=== PATIENT | female | born 1970 | race Caucasian/White ===

== ENCOUNTER → 2016-05-01 | Outpatient (CLI) | payer BC ==
[~2016-05-01] MED LIST: CEFU250T PO; DOCU100C37 PO; ESTR1TAB24 PO; IBUP-1780 PO; KETO-22 PO; MULT1CAP27 PO; OXYC-465 PO
--- NOTE | 2016-05-01 17:29 | Diagnostic Imaging Report ---
PROCEDURE: US Thyroid. TECHNIQUE: Multiple real-time grayscale images were obtained of the thyroid in various projections. INDICATION: Thyroid nodule. FINDINGS: Within the lower pole of the right lobe tiny calcified nodule shows posterior acoustical shadowing. It measures only 2 mm. Mid pole of the right thyroid lobe shows a well-circumscribed hypoechoic nodule with no perceptible blood flow. This measured 3 mm. Right lobe as a whole is within normal limits of size 4.8 x 1.3 x 1.3 cm. The left thyroid lobe normal in size at 4.3 x 1.2 x 1.4 cm. It appears homogeneous and nonfocal. IMPRESSION: A tiny 2-3 mm benign-appearing right lobe nodule, no suspicious mass. Dictated by: Dictated on workstation # [id number]
== END ==
LOC: RAD 14:48
PROVIDERS: ATTEND Family Medicine
DX: E04.1 Nontoxic single thyroid nodule (principal)
CPT/HCPCS: 76536

== ENCOUNTER → 2016-05-10 | Outpatient (CLI) | payer BC ==
[~2016-05-10] MED LIST changes: +CATHETER FLUSH 10 ML SYR IV PRN; +IOHEXOL 350 MG/ML 100 ML (OMNIPAQUE 350) VIAL IV ONE; +NS 100 ML (IVPB) BAG IV ONE
--- OUTSIDE RECORDS SUMMARY | 2016-05-10 11:00 | XMS REPORT | Continuity of Care Document ---
Author Author [facility] Organization [facility] Address Unknown Phone Unavailable Allergies Active Description Code Type Severity Reaction Onset Reported/Identified Relationship to Patient Clinical Status Yes No Known Drug Allergies [id number] Drug Allergy Unknown N/ A 04/06/2009 Medications Problems Date Dx Coded Attending Type Code Diagnosis Diagnosed By 05/24/2010 Ot 346.90 05/24/2010 Ot 784.0 09/26/2011 Ot 780.97 02/05/2014 MARTHA WOLFF MD Ot 793.80 02/05/2014 MARTHA WOLFF MD Ot V67.9 01/16/2015 Ot V76.12 01/16/2015 Ot V76.12 01/16/2015 MARTHA WOLFF MD Ot 793.82 01/16/2015 MARTHA WOLFF MD Ot V76.12 01/16/2015 MARTHA WOLFF MD Ot 793.80 01/16/2015 MARTHA WOLFF MD Ot 793.80 01/16/2015 MARTHA WOLFF MD Ot V67.9 01/16/2015 HECTOR SOMMER DO Ot K56.1 INTUSSUSCEPTION 01/16/2015 HECTOR SOMMER DO Ot N12 TUBULO-INTERSTITIAL NEPHRITIS, NOT SPCF 01/16/2015 HECTOR SOMMER DO Ot N83.20 UNSPECIFIED OVARIAN CYSTS 01/16/2015 Ot V76.12 01/16/2015 Ot V76.12 01/16/2015 MARTHA WOLFF MD Ot 793.82 01/16/2015 MARTHA WOLFF MD Ot V76.12 01/16/2015 MARTHA WOLFF MD Ot 793.80 01/16/2015 MARTHA WOLFF MD Ot 793.80 01/16/2015 MARTHA WOLFF MD, Ot V67.9 03/12/2015 MARTHA WOLFF MD, Ot N39.3 STRESS INCONTINENCE (FEMALE) (MALE) 03/12/2015 MARTHA WOLFF MD, Ot N80.1 ENDOMETRIOSIS OF OVARY 03/12/2015 MARTHA WOLFF MD, Ot N80.3 ENDOMETRIOSIS OF PELVIC PERITONEUM 03/12/2015 MARTHA WOLFF MD, Ot N81.4 UTEROVAGINAL PROLAPSE, UNSPECIFIED 03/12/2015 MARTHA WOLFF MD, Ot N92.0 EXCESSIVE AND FREQUENT MENSTRUATION WITH 03/12/2015 MARTHA WOLFF MD, Ot N93.8 OTHER SPECIFIED ABNORMAL UTERINE AND VAG 03/14/2015 MARTHA WOLFF MD, Ot D64.9 03/14/2015 MARTHA WOLFF MD, Ot N39.3 03/14/2015 MARTHA WOLFF MD, Ot N92.0 03/14/2015 MARTHA WOLFF MD, Ot Z01.818 03/14/2015 MARTHA WOLFF MD, Ot Z11.2 03/14/2015 FRANDY WARD MD Ot G89.18 OTHER ACUTE POSTPROCEDURAL PAIN 03/14/2015 FRANDY WARD MD Ot R33.9 RETENTION OF URINE, UNSPECIFIED 03/16/2015 MARTHA WOLFF MD Ot D64.9 03/16/2015 MARTHA WOLFF MD, Ot N39.3 03/16/2015 MARTHA WOLFF MD, Ot N92.0 03/16/2015 MARTHA WOLFF MD, Ot Z01.818 03/16/2015 MARTHA WOLFF MD, Ot Z11.2 05/12/2015 MARTHA WOLFF MD, Ot Z12.31 05/12/2015 MARTHA WOLFF MD, Ot Z98.82 02/11/2016 MARTHA WOLFF MD, Ot D64.9 ANEMIA, UNSPECIFIED 02/11/2016 MARTHA WOLFF MD, Ot N39.3 STRESS INCONTINENCE (FEMALE) (MALE) 02/11/2016 MARTHA WOLFF MD Ot N92.0 EXCESSIVE AND FREQUENT MENSTRUATION WITH 02/11/2016 MARTHA WOLFF MD Ot Z01.818 ENCOUNTER FOR OTHER PREPROCEDURAL EXAMIN 02/11/2016 MARTHA WOLFF MD Ot Z11.2 ENCOUNTER FOR SCREENING FOR OTHER BACTER 02/11/2016 MARTHA WOLFF MD Ot Z12.31 ENCNTR SCREEN MAMMOGRAM FOR MALIGNANT NE 02/11/2016 MARTHA WOLFF MD Ot Z98.82 BREAST IMPLANT STATUS 05/02/2016 JAMIE ALEJANDRE DO Ot E04.1 NONTOXIC SINGLE THYROID NODULE Procedures Results Encounters ACCT No. Visit Date/Time Discharge Status Pt. Type Provider Facility Loc./Unit Complaint [id number] 03/14/2015 20:09:00 2014 23:03:00 DIS Emergency FRANDY WARD MD [facility] ER POST SURG WOUND ISSUES [id number] 03/11/2015 10:50:00 2014 18:50:00 DIS Outpatient MARTHA WOLFF MD [facility] DYSFUNCTIONAL UTERINE BLEEDING;UTERINE PROLAPSE; [id number] 01/16/2015 17:30:00 2014 20:54:00 DIS Emergency HECTOR SOMMER DO [facility] ER FEVER [id number] 01/19/2014 13:14:00 2013 23:59:59 CLS Outpatient MARTHA WOLFF MD [facility] RAD [id number] 03/31/2013 08:15:00 2013 23:59:59 CLS Outpatient MRATHA WOLFF MD [facility] RAD [id number] 03/13/2013 13:54:00 2012 23:59:59 CLS Outpatient MARTHA WOLFF MD [facility] RAD [id number] 10/27/2012 15:20:00 2012 23:59:59 CLS Outpatient [id number] 05/01/2016 14:48:00 ACT Outpatient JAMIE ALEJANDRE DO [facility] RAD THYROID NODULE [id number] 04/26/2015 10:03:00 ACT Outpatient MARTHA WOLFF MD [facility] RAD SCREENING [id number] 03/03/2015 09:01:00 ACT Outpatient MARTHA WOLFF MD [facility] PREOP DYSFUNCTIONAL UTERINE BLEEDING;UTERINE PROLAPSE [id number] 01/08/2012 12:54:00 Document Registration [id number] 09/26/2011 03:45:00 Document Registration [id number] 01/03/2011 12:06:00 Document Registration [id number] 05/24/2010 13:03:00 Document Registration
--- NOTE | 2016-05-10 12:06 | Diagnostic Imaging Report ---
CLINICAL INDICATION: Patient with headaches x4 days and dizziness. EXAM: Axial CT scan of brain performed without and with 80 cc of Omnipaque 350 IV contrast. COMPARISON: Head CT without IV contrast dated 09/26/2011. FINDINGS: There is no evidence of acute cerebral infarct, intracranial hemorrhage, or gross mass effect. There is normal chaudhry-white matter distinction. The brain parenchymal volume appears appropriate for patient's age. There is no significant midline shift or herniation. The visualized alutiiq of Hollins vascular structures shows no significant abnormality. The dural venous sinuses show no significant abnormality as visualized. There is no evidence of hydrocephalus. The basal cisterns are unremarkable. The skull, extracranial soft tissue, and orbits are unremarkable. There is moderate to large amounts of air-fluid level and consolidation involving left sphenoid sinus region. IMPRESSION: Sphenoid sinusitis. Otherwise, unremarkable CT scan of the brain. Dictated by: Dictated on workstation # [id number]
== END ==
LOC: RAD 10:57
PROVIDERS: ATTEND Nurse Practitioner Family
DX: J01.30 Acute sphenoidal sinusitis, unspecified (principal); G43.909 Migraine, unspecified, not intractable, without status migrainosus; R42 Dizziness and giddiness
CPT/HCPCS: 70470

== ENCOUNTER 2016-06-04 09:03 | Emergency (ER) | payer BC ==
[~2016-06-04] VITALS: Ht 157.5 cm; Wt 54.4 kg
[~2016-06-04 09:03] MED LIST changes: -CATHETER FLUSH 10 ML SYR IV PRN; -IOHEXOL 350 MG/ML 100 ML (OMNIPAQUE 350) VIAL IV ONE; -NS 100 ML (IVPB) BAG IV ONE
--- OUTSIDE RECORDS SUMMARY | 2016-06-04 09:10 | XMS REPORT | Continuity of Care Document ---
Author Author [facility] Organization [facility] Address Unknown Phone Unavailable Allergies Active Description Code Type Severity Reaction Onset Reported/Identified Relationship to Patient Clinical Status Yes No Known Drug Allergies [id number] Drug Allergy Unknown N/ A 04/06/2009 Medications [...] SCREENING FOR OTHER BACTER 02/11/2016 MARTHA WOLFF MD, Ot Z12.31 ENCNTR SCREEN MAMMOGRAM FOR MALIGNANT NE 02/11/2016 MARTHA WOLFF MD Ot Z98.82 BREAST IMPLANT STATUS 05/02/2016 JAMIE ALEJANDRE DO Ot E04.1 NONTOXIC SINGLE THYROID NODULE 05/17/2016 JAMIE ALEJANDRE DO Ot E04.1 NONTOXIC SINGLE THYROID NODULE 05/24/2016 JIMY BARNEY APRN Ot G43.909 MIGRAINE, UNSP, NOT INTRACTABLE, WITHOUT 05/24/2016 JIMY BARNEY APRN Ot J01.30 ACUTE SPHENOIDAL SINUSITIS, UNSPECIFIED 05/24/2016 JIMY BARNEY ASSISTANT SIGNAL MAINTAINER Ot R42 DIZZINESS AND GIDDINESS Procedures Results Encounters ACCT No. Visit Date/Time Discharge Status Pt. Type Provider Facility Loc./Unit Complaint [id number] 03/14/2015 20:09:00 2014 23:03:00 DIS Emergency FRANDY WARD MD [facility] ER POST SURG WOUND ISSUES [id number] 03/11/2015 10:50:00 2014 18:50:00 DIS Outpatient MARTHA WOLFF MD [facility] DYSFUNCTIONAL UTERINE BLEEDING;UTERINE PROLAPSE; [id number] 01/16/2015 17:30:00 2014 20:54:00 DIS Emergency HECTOR SOMMER DO [facility] ER FEVER [id number] 01/19/2014 13:14:00 2013 23:59:59 CLS Outpatient MARTHA WOLFF MD [facility] RAD [id number] 03/31/2013 08:15:00 2013 23:59:59 CLS Outpatient MARTHA WOLFF MD [facility] RAD [id number] 03/13/2013 13:54:00 2012 23:59:59 CLS Outpatient MARTHA WOLFF MD [facility] RAD [id number] 10/27/2012 15:20:00 2012 23:59:59 CLS Outpatient [id number] 05/10/2016 10:57:00 ACT Outpatient JIMY BARNEY APRN [facility] RAD STATUS MIGRAINOUS [id number],DIZZINESS [id number] 05/01/2016 14:48:00 ACT Outpatient JAMIE ALEJANDRE DO [facility] RAD THYROID NODULE [id number] 04/26/2015 10:03:00 ACT Outpatient MARTHA WOLFF MD [facility] RAD SCREENING [id number] 03/03/2015 09:01:00 ACT Outpatient MARTHA WOLFF MD [facility] PREOP DYSFUNCTIONAL UTERINE BLEEDING;UTERINE PROLAPSE [id number] 01/08/2012 12:54:00 Document Registration [id number] 09/26/2011 03:45:00 Document Registration [id number] 01/03/2011 12:06:00 Document Registration [id number] 05/24/2010 13:03:00 Document Registration
[2016-06-04 09:26] LABS: BASOPHILS # (AUTO) 0.1 10^3/uL (0.0-0.1); BASOPHILS % (AUTO) 1 % (0-10); EOSINOPHILS # (AUTO) 0.1 10^3/uL (0.0-0.3); EOSINOPHILS % (AUTO) 3 % (0-10); LYMPHOCYTES # (AUTO) 1.2 X 10^3 (1.0-4.0); LYMPHOCYTES % (AUTO) 26 % (12-44); MEAN CORPUSCULAR HEMOGLOBIN 30 PG (25-34); MEAN CORPUSCULAR HGB CONC 33 G/DL (32-36); MEAN CORPUSCULAR VOLUME 91 FL (80-99); MEAN PLATELET VOLUME 9.8 FL (7.4-10.4); MONOCYTES # (AUTO) 0.6 X 10^3 (0.0-1.0); MONOCYTES % (AUTO) 12 % (0-12); NEUTROPHILS # (AUTO) 2.8 X 10^3 (1.8-7.8); NEUTROPHILS % (AUTO) 58 % (42-75); PLATELET COUNT 184 10^3/uL (130-400); RED BLOOD COUNT 4.67 10^6/uL (4.35-5.85); RED CELL DISTRIBUTION WIDTH 12.6 % (10.0-14.5); WHITE BLOOD COUNT 4.8 10^3/uL (4.3-11.0)
[2016-06-04 09:39] LABS: ALANINE AMINOTRANSFERASE 20 U/L (0-55); ALBUMIN 4.3 G/DL (3.2-4.5); ANION GAP 11 MMOL/L (5-14); ASPARTATE AMINO TRANSFERASE 27 U/L (5-34); BILIRUBIN,TOTAL 0.4 MG/DL (0.1-1.0); BLOOD UREA NITROGEN 22 MG/DL (7-18); BUN/CREATININE RATIO 22; CALCIUM 9.4 MG/DL (8.5-10.1); CARBON DIOXIDE 25 MMOL/L (21-32); CHLORIDE 103 MMOL/L (98-107); CREATININE SERUM 1.02 MG/DL (0.60-1.30); GFR ESTIMATED 58; GLUCOSE 102 MG/DL (70-105); LIPASE 30 U/L (8-78); MAGNESIUM 1.9 MG/DL (1.8-2.4); POTASSIUM 4.1 MMOL/L (3.6-5.0); SODIUM 139 MMOL/L (135-145); TOTAL PROTEIN 6.9 G/DL (6.4-8.2)
--- NOTE | 2016-06-04 09:40 | ED Chest Pain ---
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 Pt reports she has generally not felt well all day and was unable to exercise this morning as normal. Pt also c/o feeling dizzy. Nursing Sepsis Screen: No Definite Risk Source: patient, RN notes reviewed Exam Limitations: no limitations History of Present Illness Time seen by provider: 09:15 Initial Comments Patient presents c/ lower substernal/epigastric abdominal pain for the last 15 minutes. Has never had before. States hasn't felt well all morning. Dizzy/ light headed c/ nausea. Couldn't work out this AM like she normally would. No known fever. Apparently has been around several people c/ the flu but doesn't think she has it. Timing/Duration: 1/2 hour Severity/Quality: moderate Location: substernal, epigastric Radiation: no radiation Activities at Onset: none Prior CP/Workup: no prior chest pain, no prior cardiac workup Modifying Factors: improves with other (nothing/unknown) ASA po DISTILLERY WORKER GENERAL: No NTG SL DISTILLERY WORKER GENERAL: No Associated Symptoms: dizziness (nausea) Allergies and Home Medications Allergies Coded Allergies: No Known Drug Allergies (Verified , 04/06/09) Home Medications Docusate Sodium 100 Mg Capsule #60 100 MG PO BID Prescribed by: MARTHA GRESHAM on 03/12/15920 Estradiol 1 Mg Tablet #90 2 MG PO DAILY Prescribed by: MARTHA GRESHAM on 03/12/15920 Ibuprofen 800 Mg Tablet #60 800 MG PO Q6HR Prescribed by: MARTHA GRESHAM on 03/12/15920 Multivitamins 1 Each Capsule 1 EACH PO DAILY (Reported) Oxycodone HCl/Acetaminophen 1 Each Tablet #60 1-2 TAB PO Q4H PRN PRN PAIN Prescribed by: MARTHA GRESHAM on 03/12/15920 Review of Systems Constitutional: see HPI dizziness Cardiovascular: See HPI Chest Pain Gastrointestinal: See HPI Abdominal Pain Nausea All Other Systems Reviewed Negative Unless Noted: Yes (Negative excepted noted.) Past Eotnfls-Qqgsbz-Qzijww Hx Patient Social History Alcohol Use: Denies Use Recreational Drug Use: No Smoking Status: Never a Smoker 2nd Hand Smoke Exposure: No Recent Foreign Travel: No Contact w/Someone Who Travel: No Recent Infectious Disease Expo: No Recent Hopitalizations: No Immunizations Up To Date Tetanus Booster (TDap): Unknown Surgeries HX Surgeries: Yes (OVARIAN CYST REMOVAL, SHOULDER SURGERY) Surgeries: Bladder Surgery, Breast, Hysterectomy, Orthopedic Respiratory Hx Respiratory Disorders: No Cardiovascular Hx Cardiac Disorders: No Neurological Hx Neurological Disorders: No Reproductive System Hx Reproductive Disorders: Yes (DUB, UTERINE PROLAPSE) Sexually Transmitted Disease: No HIV/AIDS: No Female Reproductive Disorders: Menstrual Problems, Endometriosis, 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 Genitourinary Hx Genitourinary Disorders: No (KIDNEY INFECTION A MONTH AGO) Gastrointestinal Hx Gastrointestinal Disorders: No Musculoskeletal Hx Musculoskeletal Disorders: Yes (POSS ARTHRITIS IN ONE FINGER) Endocrine Hx Endocrine Disorders: No HEENT HX ENT Disorders: No Cancer Hx Cancer: No Psychosocial Hx Psychiatric Problems: No Integumentary HX Skin/Integumentary Disorder: No Blood Transfusions Hx Blood Disorders: No Adverse Reaction to a Blood Tr: No Family Medical History Family Medial History: BREAST CANCER 19 MOTHER Diabetes mellitus 19 MOTHER MS 19 MOTHER Parkinson's disease 19 MOTHER Physical Exam Vital Signs Vital Sign - Last 12Hours 06/04/16 09:05 Temp 96.9 Pulse 64 Resp 18 B/P 113/77 Pulse Ox 97 O2 Delivery Room Air Capillary Refill : Less Than 3 Seconds General Appearance: No Apparent Distress WD/WN HEENT: Normal ENT Inspection Neck: Normal Inspection Respiratory: No Respiratory Distress Cardiovascular: Regular Rate, Rhythm Gastrointestinal: No Guarding, No Rebound, Tenderness (epigastrically) Rectal: Deferred Neurologic/Psychiatric: Alert Oriented x3 No Motor/Sensory Deficits Normal Mood/Affect Skin: Warm/Dry Focused Exam Lactic Acid Level Laboratory Tests Test 06/04/16 09:16 Alanine Aminotransferase (ALT/SGPT) 20U/L (0-55) Albumin 4.3G/DL (3.2-4.5) Alkaline Phosphatase 78U/L (40-136) Anion Gap 11MMOL/L (5-14) Aspartate Amino Transf (AST/SGOT) 27U/L (5-34) B-Type Natriuretic Peptide < 10.0PG/ML (<100.0) BUN/Creatinine Ratio 22 Blood Urea Nitrogen 22MG/DL (7-18) H Calcium Level 9.4MG/DL (8.5-10.1) Carbon Dioxide Level 25MMOL/L (21-32) Chloride Level 103MMOL/L (98-107) Creatinine 1.02MG/DL (0.60-1.30) Estimat Glomerular Filtration Rate 58 Glucose Level 102MG/DL (70-105) Lipase 30U/L (8-78) Magnesium Level 1.9MG/DL (1.8-2.4) Potassium Level 4.1MMOL/L (3.6-5.0) Sodium Level 139MMOL/L (135-145) Total Bilirubin 0.4MG/DL (0.1-1.0) Total Protein 6.9G/DL (6.4-8.2) Troponin I < 0.30NG/ML (<0.30) Progress/Results/Core Measures Results/Orders Lab Results Laboratory Tests Test 06/04/16 09:16 Range/Units Alanine Aminotransferase (ALT/SGPT) 20 0-55 U/L Albumin 4.3 3.2-4.5 G/DL Alkaline Phosphatase 78 40-136 U/L Anion Gap 11 5-14 MMOL/L Aspartate Amino Transf (AST/SGOT) 27 5-34 U/L B-Type Natriuretic Peptide < 10.0 <100.0 PG/ML BUN/Creatinine Ratio 22 Basophils # (Auto) 0.1 0.0-0.1 10^3/uL Basophils (%) (Auto) 1 0-10 % Blood Urea Nitrogen 22 H 7-18 MG/DL Calcium Level 9.4 8.5-10.1 MG/DL Carbon Dioxide Level 25 21-32 MMOL/L Chloride Level 103 98-107 MMOL/L Creatinine 1.02 0.60-1.30 MG/DL Eosinophils # (Auto) 0.1 0.0-0.3 10^3/uL Eosinophils (%) (Auto) 3 0-10 % Estimat Glomerular Filtration Rate 58 Glucose Level 102 70-105 MG/DL Hematocrit 42 35-52 % Hemoglobin 14.0 11.5-16.0 G/DL Lipase 30 8-78 U/L Lymphocytes # (Auto) 1.2 1.0-4.0 X 10^3 Lymphocytes (%) (Auto) 26 12-44 % Magnesium Level 1.9 1.8-2.4 MG/DL Mean Corpuscular Hemoglobin 30 25-34 PG Mean Corpuscular Hemoglobin Concent 33 32-36 G/DL Mean Corpuscular Volume 91 80-99 FL Mean Platelet Volume 9.8 7.4-10.4 FL Monocytes # (Auto) 0.6 0.0-1.0 X 10^3 Monocytes (%) (Auto) 12 0-12 % Neutrophils # (Auto) 2.8 1.8-7.8 X 10^3 Neutrophils (%) (Auto) 58 42-75 % Platelet Count 184 130-400 10^3/uL Potassium Level 4.1 3.6-5.0 MMOL/L Red Blood Count 4.67 4.35-5.85 10^6/uL Red Cell Distribution Width 12.6 10.0-14.5 % Sodium Level 139 135-145 MMOL/L Total Bilirubin 0.4 0.1-1.0 MG/DL Total Protein 6.9 6.4-8.2 G/DL Troponin I < 0.30 <0.30 NG/ML White Blood Count 4.8 4.3-11.0 10^3/uL My Orders Orders-HECTOR SOMMER DO Saline Lock/Iv-Start (06/04/16 09:19) Ekg Tracing (06/04/16 09:19) BNP (06/04/16 09:19) Cbc With Automated Diff (06/04/16 09:19) Comprehensive Metabolic Panel (06/04/16 09:19) Lipase (06/04/16 09:19) Magnesium (06/04/16 09:19) Troponin I (06/04/16 09:19) Chest Pa/Lat (2 View) (06/04/16 09:19) Ns Iv 1000 Ml (Sodium Chloride 0.9%) (06/04/16 10:15) Dexamethasone Pf Injection (Decadron Pf (06/04/16 10:15) Medications Given in ED Current Medications Medications Dose Ordered Sig/Sandie Route Start Time Stop Time Status Last Admin Dose Admin Dexamethasone Sodium Phosphate 10 mg ONCE ONCE IV 06/04/16 10:15 06/04/16 10:17 DC 06/04/16 10:30 10 MG Sodium Chloride 1,000 ml @ 0 mls/hr Q0M ONCE IV 06/04/16 10:15 06/04/16 10:17 DC 06/04/16 10:30 0 MLS/HR Vital Signs/I&O Vital Sign - Last 12Hours 06/04/16 06/04/16 09:05 09:15 Temp 96.9 Pulse 64 Resp 18 B/P 113/77 Pulse Ox 97 O2 Delivery Room Air Room Air Blood Pressure Mean: 89 ECG Initial ECG Impression Date: Jun 04, 2016 Initial ECG Impression Time: 09:15 Initial ECG Rate: 73 Initial ECG Rhythm: Normal Sinus Initial ECG Impression: Normal Initial ECG Comparisson: No Previous ECG Available Diagnostic Imaging Diagonstic Imaging: Xray Plain Films/CT/US/NM/MRI: chest (nothing acute per radiologist) Departure Impression Impression: Primary Impression: Chest pain, non-cardiac Additional Impressions: Dizziness Mild dehydration Disposition: 01 HOME, SELF-CARE Condition: Stable Departure-Patient Inst. Decision time for Depature: 10:49 Referrals: JAMIE ALEJANDRE DO (PCP/Family) Primary Care Physician Patient Instructions: Chest Pain That Is Not Caused by the Heart (DC), Dehydration, Adult (DC) Add. Discharge Instructions: All discharge instructions reviewed with patient and/or family. Voiced understanding. RECOMMEND PUSHING FLUIDS THE NEXT 24 HOURS. HECTOR SOMMER DO Jun 04, 2016 09:40
--- NOTE | 2016-06-04 09:42 | Diagnostic Imaging Report ---
INDICATION: Chest pain PA and lateral views of the chest are obtained. COMPARISON: No previous study is available for comparison at this time. FINDINGS: Heart size and pulmonary vasculature are within normal limits, and the lungs are clear, bilaterally. IMPRESSION: Unremarkable chest. Dictated by: Dictated on workstation # [id number]
[2016-06-04 09:45] LABS: TROPONIN I < 0.30 NG/ML (<0.30)
[2016-06-04] MEDS ORDERED: NS IV 1000 ML 1,000 ML IV ONE (10:15)
[2016-06-04] MEDS ORDERED: DEXAMETHASONE PF 10 MG/ML (DECADRON) VIAL IV ONE (10:15)
[2016-06-04 11:19] VITALS: BP 111/68
== END 2016-06-04 11:19 | disposition home or self-care (01) ==
LOC: EDUNIT# 09:03 → ER 09:05
DX: R07.89 Other chest pain (principal); R42 Dizziness and giddiness; R11.0 Nausea
CPT/HCPCS: 36415; 71020; 80053; 83690; 83735; 83880; 84484; 85025; 93005; 96361; 96374

== ENCOUNTER → 2016-08-10 | Outpatient (CLI) | payer BC | LOC: RAD 14:53 | PROVIDERS: ATTEND Nurse Practitioner Family | DX: E04.1 Nontoxic single thyroid nodule (principal) ==

== ENCOUNTER → 2016-08-21 | Outpatient (CLI) | payer BC ==
--- NOTE | 2016-08-21 13:55 | Diagnostic Imaging Report ---
PROCEDURE: US Thyroid. TECHNIQUE: Multiple real-time grayscale images were obtained of the thyroid in various projections. INDICATION: Thyroid mass. COMPARISON: 05/01/2016. FINDINGS: Tiny 3 mm right mid pole circumscribed nonaggressive hypoechoic nodule identical to prior. Left lobe is nonfocal. The isthmus is normal. The right lobe is 4.9 cm and the left lobe 5.0 cm. IMPRESSION: Stable tiny benign right lobe nodule. No suspicious findings. Dictated by: Dictated on workstation # [id number]
== END ==
LOC: RAD 10:58
PROVIDERS: ATTEND Nurse Practitioner Family
DX: E04.1 Nontoxic single thyroid nodule (principal)
CPT/HCPCS: 76536

== ENCOUNTER → 2016-09-07 | Outpatient (CLI) | payer BC ==
--- NOTE | 2016-09-07 10:09 | Diagnostic Imaging Report ---
PROCEDURE: CT urinary tract, rule out kidney stone. TECHNIQUE: Multiple contiguous axial images were obtained through the abdomen and pelvis without the use of intravenous contrast. INDICATION: Severe costovertebral angle tenderness. Hematuria. Fever. COMPARISON: 03/14/2015. FINDINGS: Included views of the lung bases are clear. CT ABDOMEN: Ureters cannot be followed in there entirety, but no calculi seen along the expected course of the ureters. Additionally, there is no hydroureteronephrosis or other evidence of obstruction. No renal calculi are seen on either side. Additionally, no renal type masses are seen on this noncontrast exam. The liver, spleen, pancreas, and adrenal glands have an unremarkable noncontrast CT appearance as well. Small bowel loops are nondistended. Normal appendix cannot be adequately identified, but there is no pericecal inflammation. There is no loculated fluid collection, free fluid, nor free air within the abdomen. No abnormal mesenteric or retroperitoneal adenopathy is seen. Bony structures show no acute abnormalities. CT PELVIS: Urinary bladder is unopacified. No calculi are seen within urinary bladder. There is no loculated fluid collection, free fluid, nor free air. No abnormal lymph nodes are seen. Bony structures show no acute abnormalities. IMPRESSION: 1. Unremarkable noncontrast CT of the abdomen and pelvis. No acute abnormalities are identified. Dictated by: Dictated on workstation # [id number]
== END ==
LOC: RAD 09:46
DX: R31.9 Hematuria, unspecified (principal); R10.9 Unspecified abdominal pain; R50.9 Fever, unspecified
CPT/HCPCS: 74176

== ENCOUNTER → 2017-01-17 | Outpatient (CLI) | payer BC | LOC: RAD 14:11 | PROVIDERS: ATTEND Obstetrics & Gynecology | DX: Z12.31 Encounter for screening mammogram for malignant neoplasm of breast (principal) | CPT/HCPCS: 77067 ==

== ENCOUNTER → 2018-12-30 | Outpatient (CLI) | payer BC ==
--- NOTE | 2018-12-30 15:04 | Diagnostic Imaging Report ---
INDICATION: Routine screening. COMPARISON: 01/17/2017 and 04/26/2015. TECHNIQUE: 2D and 3D bilateral screening mammography was performed with CAD. FINDINGS: Bilateral breast implants are again noted. The implant contours remain smooth. The breast parenchyma remains heterogeneously dense, limiting the sensitivity of mammography. No mass or malignant appearing microcalcifications are seen. The axillae are unremarkable. IMPRESSION: No mammographic features suspicious for malignancy are identified. ACR BI-RADS Category 2: Benign findings. Result letter will be mailed to the patient. Note: At least 10% of breast cancer is not imaged by mammography. Dictated by: Dictated on workstation # [id number]
== END ==
LOC: RAD 13:44
PROVIDERS: ATTEND Obstetrics & Gynecology
DX: Z12.31 Encounter for screening mammogram for malignant neoplasm of breast (principal); Z98.82 Breast implant status
CPT/HCPCS: 77067

== ENCOUNTER → 2020-01-01 | Outpatient (CLI) | payer BC ==
[~2020-01-01] MED LIST changes: -OXYC-465 PO; +OXYC-556 PO
--- NOTE | 2020-01-01 16:06 | Diagnostic Imaging Report ---
INDICATION: Routine screening. COMPARISON is made with prior mammograms from 12/30/2018 and 01/17/2017. 2-D and 3-D bilateral screening mammography was performed with CAD. Bilateral breast implants are again noted. No definite evidence of extracapsular rupture is seen. Both breasts remain heterogeneously dense, limiting the sensitivity of mammography. The parenchymal pattern is stable. No mass or malignant appearing microcalcifications are seen. The axillae are unremarkable. IMPRESSION: BI-RADS Category 2. No mammographic features suspicious for malignancy are identified. ACR BI-RADS Category 2: Benign findings. Result letter will be mailed to the patient. Note: At least 10% of breast cancer is not imaged by mammography. Dictated by: Dictated on workstation # [id number]
== END ==
LOC: RAD 15:00
PROVIDERS: ATTEND Obstetrics & Gynecology
DX: Z12.31 Encounter for screening mammogram for malignant neoplasm of breast (principal)
CPT/HCPCS: 77063; 77067

== ENCOUNTER → 2020-04-28 | Outpatient (CLI) | payer BC ==
--- NOTE | 2020-04-28 14:26 | Diagnostic Imaging Report ---
INDICATION: Palpable lump in left popliteal fossa. FINDINGS: Sonographic interrogation of the area of lump in the left popliteal fossa was performed. There is an area of heterogeneous soft tissue measuring 2.3 x 0.9 x 2.2 cm without internal vascularity. This may represent a lipoma. No fluid collection is seen. IMPRESSION: Probable lipoma at the area of palpable abnormality. Close clinical follow-up is recommended. If further imaging is needed, MRI could be performed. Dictated by: Dictated on workstation # [id number]
== END ==
LOC: RAD 13:43
PROVIDERS: ATTEND Surgery
DX: M71.22 Synovial cyst of popliteal space [Baker], left knee (principal)
CPT/HCPCS: 76881

== ENCOUNTER 2020-05-24 05:38 | Outpatient (RCR) | payer BC | END 2020-08-22 | disposition home or self-care (01) | LOC: PREOP 05:38 | PROVIDERS: ATTEND Surgery | DX: Z01.818 Encounter for other preprocedural examination (principal) ==

== ENCOUNTER → 2020-06-03 | Outpatient (CLI) | payer BC ==
[~2020-06-03] MED LIST changes: +GADOBUTROL 7.5 MMOL/7.5 ML (GADAVIST) VIAL IV ONE
--- NOTE | 2020-06-03 16:58 | Diagnostic Imaging Report ---
PROCEDURE: MRI left lower extremity with and without contrast. TECHNIQUE: Multiplanar, multisequence pre and post contrast-enhanced MRI of the left lower extremity was accomplished. INDICATION: Left popliteal mass. COMPARISON: Ultrasound from 04/28/2020. FINDINGS: No acute fracture is seen in the left knee. There is mild lateral tilt of the patella. Alignment otherwise appears normal. There is no significant joint effusion. The articular cartilage in the patellofemoral compartment demonstrates no full-thickness defects. Articular cartilage in the medial and lateral compartments appears intact. STIR signal is quite low. No definite meniscus tear is seen. The anterior and posterior cruciate ligaments are intact. The medial collateral ligament and lateral collateral ligamentous complex appear intact. The extensor mechanism is intact. The medial and lateral retinacula are intact. There is trace fluid in Davenport's cyst. Underlying the MRI marker there is a prominent encapsulated lobulated area of subcutaneous fat measuring about 3.4 x 1.4 x 2.1 cm in size. There is no enhancement, nodularity or thickened septation. IMPRESSION: 1. The MRI marker at the palpable abnormality corresponds with a simple subcutaneous lipoma. Dictated by: Dictated on workstation # [id number]
== END ==
LOC: RAD 14:38
PROVIDERS: ATTEND Surgery
DX: R22.42 Localized swelling, mass and lump, left lower limb (principal)
CPT/HCPCS: 73720

== ENCOUNTER 2020-06-14 05:31 | Outpatient (RCR) | payer BC ==
[~2020-06-14] VITALS: Ht 160 cm; Wt 48.0 kg
[~2020-06-14 05:31] MED LIST changes: -GADOBUTROL 7.5 MMOL/7.5 ML (GADAVIST) VIAL IV ONE
== END 2020-06-14 12:53 | disposition home or self-care (01) ==
LOC: PREOP 05:31
PROVIDERS: ATTEND Surgery
DX: Z01.818 Encounter for other preprocedural examination (principal)

== ENCOUNTER 2020-06-21 09:38 | Day surgery (SDC) | payer BC ==
[~2020-06-21] VITALS: Ht 160 cm; Wt 48.0 kg
[2020-06-21 09:40] VITALS: BP 102/68
[2020-06-21] MEDS ORDERED: LACTATED RINGERS 1,000 ML IV STA ×2 (09:41→09:53)
[2020-06-21] MEDS ORDERED: MIDAZOLAM 2 MG/2 ML (VERSED) VIAL ONE (09:44)
[2020-06-21] MEDS ORDERED: PROPOFOL INJECTION 50 ML IV ONE (09:44)
[2020-06-21] MEDS ORDERED: LACTATED RINGERS 1,000 ML IV ONE (09:49)
[2020-06-21 10:45] VITALS: BP 90/50
--- NOTE | 2020-06-21 10:47 | Progress Note-Post Operative ---
Post-Operative Progess Note Surgeon (s)/Print Shop Manager (s) Surgeon CHIRAG CHOWDHURY DO Print Shop Manager: na Pre-Operative Diagnosis screening colonoscopy Post-Operative Diagnosis normal colonoscopy Procedure & Operative Findings Date of Procedure 06/21/20 Procedure Performed/Findings colonoscopy Anesthesia Type per [facility] Estimated Blood Loss Estimated blood loss (mL): none Specimens/Packing Specimens Removed na CHIRAG CHOWDHURY DO Jun 21, 2020 10:47
--- NOTE | 2020-06-21 10:49 | Discharge Inst-Simple/Standard ---
Discharge Inst-Standard Patient Instructions/Follow Up Plan of Care/Instructions/FU: 2 weeks Jasmin for procedure of Lipoma. Repeat colonoscopy in 10 years unless family history which would be 5 years, or if any issues be seen at that time. Activity as Tolerated: Yes Discharge Diet: Regular Diet CHIRAG CHOWDHURY DO Jun 21, 2020 10:49
[2020-06-21 10:50] VITALS: BP 91/54
[2020-06-21 10:55] VITALS: BP 91/54
[2020-06-21 11:10] VITALS: BP 95/56
--- NOTE | 2020-06-21 12:36 | Anesthesia-General Post-Op ---
MAC Patient Condition Mental Status/LOC: Same as Preop Cardiovascular: Satisfactory Nausea/Vomiting: Absent Respiratory: Satisfactory Pain: Controlled Complications: Absent Post Op Complications Complications None Follow Up Care/Instructions Patient Instructions None needed. Anesthesiology Discharge Order Discharge Order Patient was seen after the procedure and she was doing well, no complaints, stable vital signs, no apparent adverse anesthesia problems. ABY GARCIA DO Jun 21, 2020 12:36
--- NOTE | 2020-06-21 15:13 | OPERATIVE REPORT ---
DATE OF SERVICE: 06/21/2020 PREOPERATIVE DIAGNOSIS: Screening colonoscopy. POSTOPERATIVE DIAGNOSIS: Normal colon. PROCEDURE PERFORMED: Colonoscopy. SURGEON: Chirag Castellanos DO. ANESTHESIA: Per MDA. ESTIMATED BLOOD LOSS: None. COMPLICATIONS: None. INDICATIONS FOR PROCEDURE: The patient is a 50-year-old female needing screening colonoscopy. She understands the risks and benefits of the procedure and wished to proceed with the procedure. Consent was signed in the chart. DESCRIPTION OF PROCEDURE: The patient was taken to the endoscopy suite and placed in a left lateral recumbent position. Timeout was performed. A digital rectal exam was performed. There were no palpable polyps, masses or ulcerations. Scope was inserted in the rectum, advanced all the way to cecum with minimal difficulty. Prep was adequate. Scope was then slowly retracted back. There were no polyps, masses or ulcerations within the cecum, ascending, transverse, descending and sigmoid colon. Once in the rectum, scope was retroflexed noting no other pathology. Scope was returned to its normal position, slowly withdrawn until completely removed, noting no other pathology. The patient tolerated the procedure well without any complications. She was taken to the recovery room in a stable condition. RECOMMENDATIONS: The patient will need a repeat colonoscopy in 10 years unless family history of colon cancer, which would then be 5 years. Any issues before that be seen at that time. 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 She will proceed with that in the office to discuss. Job ID: [id number] DocumentID: [id number] Dictated Date: 06/21/2020 10:52:18 Cyber Incident Responder Date: 06/21/2020 15:13:29 Dictated By: CHIRAG CASTELLANOS DO
== END 2020-06-21 11:10 | disposition home or self-care (01) ==
LOC: ENDO 09:38
PROVIDERS: ATTEND Surgery
DX: Z12.11 Encounter for screening for malignant neoplasm of colon (principal); F41.9 Anxiety disorder, unspecified; Z79.899 Other long term (current) drug therapy; Z90.710 Acquired absence of both cervix and uterus; Z80.3 Family history of malignant neoplasm of breast

== ENCOUNTER → 2022-05-14 | Outpatient (CLI) | payer OTHER ==
--- NOTE | 2022-05-15 15:58 | Diagnostic Imaging Report ---
3D bilateral screening mammogram with CAD. This study was compared to the prior exams of 01/01/2020 and 12/30/2018. There are no current complaints. As noted on the previous study, there are bilateral breast implants in place. The implants seems similar in appearance. There is no sign of an extracapsular rupture of either implant. The fibroglandular tissue overlying the implants is heterogeneously dense. This does limit the sensitivity of this exam. When compared to the previous study there does not appear to have been any significant change. There is no primary or secondary sign of malignancy noted. IMPRESSION: 1. There is no evidence for malignancy. 2. The breast implants appear stable. There is no sign of an extracapsular rupture if either implant. ACR BI-RADS Category 1: Negative. Result letter will be mailed to the patient. Note: At least 10% of breast cancer is not imaged by mammography. Dictated by: Dictated on workstation # [id number]
== END ==
LOC: RAD 14:30
PROVIDERS: ATTEND Nurse Practitioner Family
DX: Z12.31 Encounter for screening mammogram for malignant neoplasm of breast (principal); Z98.82 Breast implant status
CPT/HCPCS: 77063; 77067

== ENCOUNTER 2022-09-29 21:02 | Emergency (ER) | payer OTHER ==
[~2022-09-29] VITALS: Ht 160 cm; Wt 52.2 kg
--- NOTE | 2022-09-29 21:24 | ED Upper Extremity ---
General Chief Complaint: Upper Extremity Stated Complaint: INJ LEFT WRIST Nursing Triage Note: PT TO TRIAGE VIA W/C WITH C/O LEFT WRIST INJURY. PT REPORTS SHE TRIPPED OVER HER CAT AND FELL LANDING ON LEFT WRIST. PT REPORTS SHE IS IN W/C BECAUSE SHE IS WEAK BECAUSE SHE THINKS SHE BROKE HER LEFT WRIST. Source: patient History of Present Illness Date Seen by Provider: Sep 29, 2022 Time Seen by Provider: 21:12 Initial Comments PT ARRIVES VIA POV FROM HOME , WANTS WHEELCHAIR ON ARRIVAL C/O LEFT WRIST INJURY JUST PRIOR TO ARRIVAL--LESS THAN 20 MINUTES AGO PT STATES SHE WAS STEPPING DOWN FROM A LADDER, AND STEPPED ON THE CAT, LOST HER BALANCE AND FELL, LANDING ON OUTSTRETCHED LEFT ARM C/O LEFT WRIST PAIN NO PARESTHESIAS OR MOTOR DEFICITS DID NOT HIT HEAD AND NO LOSS OF CONSCIOUSNESS NO OTHER INJURIES FROM THE INCIDENT NO PRIOR Allergies and Home Medications Allergies Coded Allergies: No Known Drug Allergies (Verified , 04/06/09) Patient Home Medication List Estradiol (Estradiol Tablet) 1 Mg Tablet, 2 MG PO DAILY Prescribed by: MARTHA GRESHAM on 03/12/15 0921 Past Ytuzlnz-Zawaom-Zmxzvp Hx Patient Social History Tobacco Use?: No Smoking Status: Never a Smoker Smokeless Tobacco Frequency: Never a User Use of E-Cig and/or Vaping dev: No Use of E-Cig and/or Vaping Mynor: Never a User Substance use?: No Alcohol Use?: No Pt feels they are or have been: No Immunizations Up To Date Tetanus Booster (TDap): Unknown Seasonal Allergies Seasonal Allergies: No Past Medical History Surgeries: Yes (OVARIAN CYST REMOVAL, SHOULDER SURGERY) Bladder Surgery, Breast, Hysterectomy, Orthopedic Respiratory: No Currently Using CPAP: No Cardiac: No Neurological: No Reproductive Disorders: Yes (DUB, UTERINE PROLAPSE) Female Reproductive Disorders: Menstrual Problems, Endometriosis, 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 Sexually Transmitted Disease: No HIV/AIDS: No Genitourinary: No Gastrointestinal: No Musculoskeletal: Yes (POSS ARTHRITIS IN ONE FINGER) Endocrine: No Loss of Vision: Denies Hearing Impairment: Denies Cancer: No Psychosocial: No Integumentary: No Blood Disorders: No Adverse Reaction/Blood Tranf: No Family Medical History BREAST CANCER 19 MOTHER Diabetes mellitus 19 MOTHER MS 19 MOTHER Parkinson's disease 19 MOTHER Physical Exam Vital Signs Vital Signs - First Documented 09/29/22 21:10 Temp 36.5 Pulse 88 Resp 16 B/P (MAP) 86/57 (67) O2 Delivery Room Air Capillary Refill : Less Than 3 Seconds Height, Weight, BMI Height: 5'2" Weight: 120lbs. 4.0oz. 54.519186vd; 20.00 BMI Method:Stated Progress/Results/Core Measures Results/Orders My Orders Orders - ZAHRAA HERNÁNDEZ DO Forearm, Left, 2 Views (09/29/22 21:21) Wrist, Left, 3 Views Or More (09/29/22 21:21) Ondansetron Oral Dissolve Tab (Zofran (09/29/22 21:45) Hydrocodone/Apap 5/325 Tablet (Lortab 5 (09/29/22 21:45) Ed Ortho/Other Supplies Order (09/29/22 21:42) Ortho Glass (09/29/22 21:42) Rx-Hydrocodone/Apap 5-325 Mg (Rx-Vicodin (09/29/22 21:45) Medications Given in ED Current Medications Medications Dose Ordered Sig/Sandie Route Start Time Stop Time Status Last Admin Dose Admin Acetaminophen/ Hydrocodone Bitart 1 ea ONCE ONCE PO 09/29/22 21:45 09/29/22 21:46 DC 09/29/22 21:49 1 EA Acetaminophen/ Hydrocodone Bitart 1 ea Q4H PRN PO 09/29/22 21:45 09/29/22 21:49 1 EA Ondansetron HCl 4 mg ONCE ONCE PO 09/29/22 21:45 09/29/22 21:46 DC 09/29/22 21:49 4 MG Vital Signs/I&O 09/29/22 09/29/22 21:10 21:49 Temp 36.5 36.5 Pulse 88 Resp 16 B/P (MAP) 86/57 (67) O2 Delivery Room Air Blood Pressure Mean: 67 Departure Impression Primary Impression: Closed fracture of left distal radius Disposition: 01 HOME, SELF-CARE Condition: Stable Departure-Patient Inst. Decision time for Depature: 21:50 Referrals: HECTOR BERGER DO (PCP) Primary Care Physician YASSINE BERGER, INGA (Family) Primary Care Physician JOSÉ MIGUEL WILLARD MD Patient Instructions: Forearm and Wrist Fractures ED, How to Use a Shoulder Sling, Radius Fracture (DC), SPLINT CARE Add. Discharge Instructions: SPLINT AND SLING AT ALL TIMES ICE TO AREA AT 20 MINUTE INTERVALS ELEVATE LEFT ARM MUCH POSSIBLE FOLLOW UP WITH DR. WILLARD NEXT WEEK FOR FURTHER CARE--CALL IN THE MORNING TO SCHEDULE AN APPOINTMENT All discharge instructions reviewed with patient and/or family. Voiced under standing. Scripts Hydrocodone/Acetaminophen (Hydrocodone-Acetamin 5-325 mg) 5 Mg-325 Mg Tablet 1 EACH PO Q4-6 HOURS PRN for PAIN, #20 TAB Prov: ZAHRAA HERNÁNDEZ DO 09/29/22 ZAHRAA HERNÁNDEZ DO Sep 29, 2022 21:24
[2022-09-29] MEDS ORDERED: ONDANSETRON 4 MG (ZOFRAN) ORAL DISSOLVE TAB PO ONE (21:45)
[2022-09-29] MEDS ORDERED: HYDROcodone/APAP 5 MG/325 MG (LORTAB) TAB PO ONE (21:45)
--- NOTE | 2022-09-29 21:54 | Diagnostic Imaging Report ---
INDICATION: Left forearm pain AP and lateral views left forearm are obtained at 0918 p.m. There is a comminuted distal radial fracture with mild impaction. The proximal and mid portions of the radial shaft are intact. The ulna appears intact. IMPRESSION: Comminuted distal radial fracture with mild impaction. Remaining structures intact. Dictated by: Dictated on workstation # [id number]
--- NOTE | 2022-09-29 21:54 | Diagnostic Imaging Report ---
INDICATION: Left wrist pain post injury AP, oblique, lateral views left wrist are obtained at 0917 p.m. There is a comminuted distal radial fracture with intra-articular extension and mild impaction. There is no significant angulation. Remaining structures are intact. IMPRESSION: Comminuted slightly impacted intra-articular fracture of distal left radius. Remaining structures are intact. Dictated by: Dictated on workstation # [id number]
[2022-09-29] MEDS ORDERED: ACHD5005 PO (21:58)
[2022-09-29 22:02] VITALS: BP 120/68
== END 2022-09-29 22:05 | disposition home or self-care (01) ==
LOC: EDUNIT# 21:02 → ER 21:05
DX: S52.502A Unspecified fracture of the lower end of left radius, initial encounter for closed fracture (principal); Z28.310 Unvaccinated for COVID-19; W11.XXXA Fall on and from ladder, initial encounter
CPT/HCPCS: 25605; 29125; 73090; 73110

== ENCOUNTER 2022-10-04 15:51 | Outpatient (CLI) | payer OTHER ==
[~2022-10-04] VITALS: Ht 160 cm; Wt 54.3 kg
[~2022-10-04 15:51] MED LIST changes: -BISA-65 PO; -CALC600T91 PO; -CHOL500050 PO; -DEXT20CA4 PO; -DOXE10CA29 PO; -OXC5T PO
[2022-10-04] MEDS ORDERED: BISA-65 PO ×2 (18:22)
[2022-10-04] MEDS ORDERED: CHOL500050 PO ×2 (18:22)
[2022-10-04] MEDS ORDERED: CALC600T91 PO ×2 (18:22)
[2022-10-04] MEDS ORDERED: DEXT20CA4 PO ×2 (18:22)
[2022-10-04] MEDS ORDERED: DOXE10CA29 PO ×2 (18:22)
[2022-10-04] MEDS ORDERED: OXC5T PO (18:22)
== END 2022-10-04 18:24 ==
LOC: PREOP 15:51
PROVIDERS: ATTEND Orthopaedic Surgery
DX: Z01.818 Encounter for other preprocedural examination (principal)

== ENCOUNTER → 2022-10-04 | Outpatient (CLI) | payer OTHER ==
[~2022-10-04] MED LIST changes: +ACHD5005 PO; +BISA-65 PO; +CALC600T91 PO; +CHOL500050 PO; +DEXT20CA4 PO; +DOXE10CA29 PO; +OXC5T PO
== END ==
LOC: ORTHO 10:09
PROVIDERS: ATTEND Orthopaedic Surgery
DX: S52.502A Unspecified fracture of the lower end of left radius, initial encounter for closed fracture (principal); X58.XXXA Exposure to other specified factors, initial encounter
CPT/HCPCS: 99203

== ENCOUNTER 2022-10-08 06:30 | Day surgery (SDC) | payer OTHER ==
[2022-10-08] VITALS (12 sets, daily range): BP systolic 111–143; BP diastolic 54–88
[~2022-10-08] VITALS: Ht 160 cm; Wt 54.3 kg
[~2022-10-08 06:30] MED LIST changes: +BISA-65 PO; +CALC600T91 PO; +CHOL500050 PO; +DEXT20CA4 PO; +DOXE10CA29 PO; +OXC5T PO
[2022-10-08] MEDS ORDERED: LACTATED RINGERS 1,000 ML IV PRN (06:45)
[2022-10-08] MEDS ORDERED: ceFAZolin INJECTION 2,000 MG in NS (IVPB) 50 ML IV ONE (06:45)
[2022-10-08] MEDS ORDERED: BUPIVACAINE 0.25% 30 ML (SENSORCAINE) VIAL ONE (07:11)
[2022-10-08] MEDS ORDERED: fentaNYL INJ 100 MCG/2 ML AMP ONE ×2 (07:26→08:59)
[2022-10-08] MEDS ORDERED: MIDAZOLAM 2 MG/2 ML (VERSED) VIAL ONE (07:26)
[2022-10-08] MEDS ORDERED: LIDOCAINE PF 2% 5 ML (XYLOCAINE) VIAL ONE (07:26)
[2022-10-08] MEDS ORDERED: proPOfol 200 MG/20 ML (DIPRIVAN) VIAL IV ONE (07:26)
--- NOTE | 2022-10-08 07:46 | Progress Note-Pre Operative ---
Pre-Operative Progress Note Date of Available H&P: Oct 04, 2022 Date H&P Reviewed: Oct 08, 2022 Time H&P Reviewed: 07:40 History & Physical: H&P Reviewed, Patient Examed, No changes noted Pre-Operative Diagnosis: Left Colles Fracture JOSÉ MIGUEL WILLARD MD Oct 08, 2022 07:46
[2022-10-08] MEDS ORDERED: BUPIVACAINE 0.25% 30 ML (SENSORCAINE) VIAL INJ ONE (08:09)
[2022-10-08] MEDS ORDERED: ONDANSETRON 4 MG/2 ML (SDV) Z0FRAN ONE (08:25)
[2022-10-08] MEDS ORDERED: SEVOFLURANE (ULTANE) 15 ML INHAL SOLN ONE (08:26)
[2022-10-08] MEDS ORDERED: OXC5T PO ×2 (08:33)
--- NOTE | 2022-10-08 08:33 | Anesthesia-General Post-Op ---
General Patient Condition Mental Status/LOC: Same as Preop Cardiovascular: Satisfactory Nausea/Vomiting: Absent Respiratory: Satisfactory Pain: Controlled Complications: Absent Post Op Complications Complications None Follow Up Care/Instructions Patient Instructions None needed. Anesthesia/Patient Condition Patient Condition Patient is doing well, no complaints, stable vital signs, no apparent adverse anesthesia problems. No complications reported per nursing. NGOC MAYFIELD CRNA Oct 08, 2022 08:33
--- NOTE | 2022-10-08 08:39 | Operative Report - Ortho ---
Operative Report Surgeon (s)/Railroad Car Repairman (s) Surgeon JOSÉ MIGUEL WILLARD MD Railroad Car Repairman n/a Pre-Operative Diagnosis Left Colles Fracture Post-Operative Diagnosis same Operative Report Date of Procedure: Oct 08, 2022 Name of Procedure Performed: Closed Reduction and Percutaneous Pinning of Left Colles Fracture Description & Findings After obtaining informed consent and marking the patient in the preop holding area, patient was administered IV antibiotics. Patient was taken to the operating room and general anesthesia was induced. Surgical timeout was taken. Left arm was prepped and draped in the usual sterile fashion. Closed reduction was performed with traction, flexion, and slight ulnar deviation. A K-wire was then introduced over the radial styloid position and across the fracture site directed dorsally; wire position was confirmed on the C-arm. A 2nd slightly small diameter K-wire was introduced from the ulnar side of the distal radius and directed volarly across the fracture site; position of this wire was confirmed. A 3rd wire was then placed from the radial styloid position and directed volarly. Fracture reduction and wire positions were confirmed. All wires were then bent, cut, and capped. Final C-arm images were obtained and sent to PACS. Pin sites and wrist were dressed with xeroform, 4x4s, cast padding, volar splint and SOPHIA wrap. Patient tolerated the procedure well and was stable to the recovery room. Anesthesia Type General Estimated Blood Loss minimal Specimen(s) collected/removed None JOSÉ MIGUEL WILLARD MD Oct 08, 2022 08:39
[2022-10-08] MEDS ORDERED: ONDANSETRON 4 MG/2 ML (SDV) Z0FRAN IVP PRN (08:45)
[2022-10-08] MEDS ORDERED: fentaNYL INJ 100 MCG/2 ML AMP IVP ONE (08:45)
[2022-10-08] MEDS ORDERED: morphine INJ 10 MG/ML 1ML (SYR OR VIAL) IVP ONE (08:45)
[2022-10-08] MEDS ORDERED: morphine INJ 10 MG/ML 1ML (SYR OR VIAL) ONE (08:47)
== END 2022-10-08 10:45 | disposition home or self-care (01) ==
LOC: SDC 06:30
PROVIDERS: ATTEND Orthopaedic Surgery
DX: S52.532A Colles' fracture of left radius, initial encounter for closed fracture (principal); W19.XXXA Unspecified fall, initial encounter; Y92.009 Unspecified place in unspecified non-institutional (private) residence as the place of occurrence of the external cause; Z28.310 Unvaccinated for COVID-19
CPT/HCPCS: 87081

== ENCOUNTER → 2022-10-16 | Outpatient (CLI) | payer OTHER | LOC: ORTHO 10:53 | PROVIDERS: ATTEND Orthopaedic Surgery | DX: Z47.89 Encounter for other orthopedic aftercare (principal) ==

== ENCOUNTER 2022-10-29 05:33 | Outpatient (CLI) | payer OTHER ==
[~2022-10-29] VITALS: Ht 160 cm; Wt 52.3 kg
[2022-10-29] MEDS ORDERED: MULT-974 PO (13:53)
== END 2022-10-29 14:08 | disposition home or self-care (01) ==
LOC: PREOP 05:33
PROVIDERS: ATTEND Orthopaedic Surgery
DX: Z01.818 Encounter for other preprocedural examination (principal)

== ENCOUNTER → 2022-10-31 | Outpatient (CLI) | payer OTHER ==
[~2022-10-31] MED LIST changes: +MULT-974 PO
--- NOTE | 2022-10-31 10:35 | Diagnostic Imaging Report ---
INDICATION: Closed fracture of distal end of radius. TECHNIQUE: 3 views of the left wrist at 9:53 AM. CORRELATION STUDY: 09/29/2022. FINDINGS: Three external fixation pins have been placed transfixing the comminuted intra-articular distal radius fracture. The alignment is near anatomic. Fracture lines remain present and this is incompletely healed. Distal ulna is intact. Narrowing at the radiocarpal row. Mild degenerative changes of the 1st carpometacarpal articulation. Splint material is present. IMPRESSION: Three external fixation pins have been placed transfixing the comminuted intra-articular distal radius fracture. Dictated by: Dictated on workstation # [id number]
== END ==
LOC: ORTHO 09:44
PROVIDERS: ATTEND Orthopaedic Surgery
DX: S52.532A Colles' fracture of left radius, initial encounter for closed fracture (principal); X58.XXXA Exposure to other specified factors, initial encounter
CPT/HCPCS: 73110

== ENCOUNTER 2022-11-05 09:40 | Day surgery (SDC) | payer OTHER ==
[2022-11-05] VITALS (7 sets, daily range): BP systolic 91–105; BP diastolic 61–68
[~2022-11-05] VITALS: Ht 160 cm; Wt 52.3 kg
[2022-11-05] MEDS ORDERED: LACTATED RINGERS 1,000 ML IV PRN (10:00)
[2022-11-05] MEDS ORDERED: ONDANSETRON 4 MG/2 ML (SDV) Z0FRAN ONE (11:30)
[2022-11-05] MEDS ORDERED: proPOfol 200 MG/20 ML (DIPRIVAN) VIAL IV ONE (11:30)
[2022-11-05] MEDS ORDERED: fentaNYL INJECTION 100 MCG/2 ML VIAL ONE (11:31)
[2022-11-05] MEDS ORDERED: MIDAZOLAM INJ 2 MG/2 ML VIAL ONE (11:31)
--- NOTE | 2022-11-05 11:36 | Progress Note-Pre Operative ---
Pre-Operative Progress Note Date of Available H&P: Oct 31, 2022 Date H&P Reviewed: Nov 05, 2022 Time H&P Reviewed: 11:25 History & Physical: H&P Reviewed, Patient Examed, No changes noted Pre-Operative Diagnosis: Left Distal Radius Fracture JOSÉ MIGUEL WILLARD MD Nov 05, 2022 11:36
--- NOTE | 2022-11-05 11:59 | Operative Report - Ortho ---
Operative Report Surgeon (s)/Furnace Attendant (s) Surgeon JOSÉ MIGUEL WILLARD MD Furnace Attendant n/a Pre-Operative Diagnosis Left Distal Radius Fracture Post-Operative Diagnosis same Operative Report Date of Procedure: Nov 05, 2022 Name of Procedure Performed: Removal of pins from left wrist Description & Findings After obtaining informed consent and marking the patient in the preoperative holding area, the patient was taken to the operating room and sedation was administered. Surgical timeout was taken. The wrist splint was removed. Using pliers, all 3 pins were removed from the left wrist without difficulty. Mini C- arm demonstrated maintained reduction of the fracture. Wrist was dressed with xeroform, 4x4s, cast padding, volar splint and SOPHIA wrap. Patient tolerated the procedure well and was stable to the recovery room. Anesthesia Type Conscious Sedation Estimated Blood Loss minimal Specimen(s) collected/removed None JOSÉ MIGUEL WILLARD MD Nov 05, 2022 11:59
[2022-11-05] MEDS ORDERED: morphine INJ 10 MG/ML 1ML (SYR OR VIAL) IVP ONE (12:00)
[2022-11-05] MEDS ORDERED: ONDANSETRON 4 MG/2 ML (SDV) Z0FRAN IVP PRN (12:00)
--- NOTE | 2022-11-05 12:00 | Anesthesia-General Post-Op ---
General Patient Condition Mental Status/LOC: Same as Preop Cardiovascular: Satisfactory Nausea/Vomiting: Absent Respiratory: Satisfactory Pain: Controlled Complications: Absent Post Op Complications Complications None Follow Up Care/Instructions Patient Instructions None needed. Anesthesia/Patient Condition Patient Condition Patient is doing well, no complaints, stable vital signs, no apparent adverse anesthesia problems. No complications reported per nursing. JOSÉ MIGUEL URIBE CRNA Nov 05, 2022 12:00
== END 2022-11-05 13:05 | disposition home or self-care (01) ==
LOC: SDC 09:40
PROVIDERS: ATTEND Orthopaedic Surgery
DX: S52.502D Unspecified fracture of the lower end of left radius, subsequent encounter for closed fracture with routine healing (principal)
CPT/HCPCS: 87081

== ENCOUNTER → 2022-11-20 | Outpatient (CLI) | payer OTHER ==
--- NOTE | 2022-11-20 09:46 | Diagnostic Imaging Report ---
INDICATION: Follow-up fracture EXAMINATION: Left wrist 11/20/2022 COMPARISON: 10/31/2022 FINDINGS: 3 views of the wrist demonstrate interval removal of multiple previously noted surgical pins. Osseous structures are in good anatomic alignment. Minimal residual lucency noted in the radial styloid process. IMPRESSION: 1. Uncomplicated postoperative findings. Dictated by: Dictated on workstation # [id number]
== END ==
LOC: ORTHO 08:43
PROVIDERS: ATTEND Orthopaedic Surgery
DX: Z09 Encounter for follow-up examination after completed treatment for conditions other than malignant neoplasm (principal)
CPT/HCPCS: 73110

== ENCOUNTER → 2022-12-04 | Outpatient (CLI) | payer OTHER | LOC: ORTHO 14:20 | PROVIDERS: ATTEND Orthopaedic Surgery | DX: Z47.89 Encounter for other orthopedic aftercare (principal) ==

== ENCOUNTER → 2022-12-26 | Outpatient (CLI) | payer OTHER ==
--- NOTE | 2022-12-26 10:43 | Diagnostic Imaging Report ---
EXAMINATION: Left wrist 3 or more views HISTORY: Fracture COMPARISON: 11/20/2022 FINDINGS: Alignment is near-anatomic. No fracture is seen. 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 No dislocation. IMPRESSION: 1. Healed left distal radial fracture. Dictated by: Dictated on workstation # [id number]
== END ==
LOC: ORTHO 10:26
PROVIDERS: ATTEND Orthopaedic Surgery
DX: Z47.89 Encounter for other orthopedic aftercare (principal)
CPT/HCPCS: 73110

== ENCOUNTER 2023-01-21 08:00 | Outpatient (RCR) | payer OTHER | END 2023-01-22 | disposition home or self-care (01) | PROVIDERS: ATTEND Orthopaedic Surgery | DX: M25.512 Pain in left shoulder (principal) ==

== ENCOUNTER 2023-01-21 13:29 | Outpatient (RCR) | payer OTHER | END 2023-01-22 | disposition home or self-care (01) | PROVIDERS: ATTEND Orthopaedic Surgery | DX: Z09 Encounter for follow-up examination after completed treatment for conditions other than malignant neoplasm (principal); R22.32 Localized swelling, mass and lump, left upper limb; R53.1 Weakness ==

== ENCOUNTER 2023-01-24 13:30 | Outpatient (RCR) | payer OTHER | END 2023-01-24 15:05 | disposition home or self-care (01) | PROVIDERS: ATTEND Orthopaedic Surgery | DX: Z09 Encounter for follow-up examination after completed treatment for conditions other than malignant neoplasm (principal); R22.32 Localized swelling, mass and lump, left upper limb; R53.1 Weakness ==

== ENCOUNTER 2023-01-30 16:08 | Outpatient (RCR) | payer OTHER | END 2023-02-05 10:15 | disposition home or self-care (01) | PROVIDERS: ATTEND Orthopaedic Surgery | DX: M25.512 Pain in left shoulder (principal) ==

== ENCOUNTER → 2023-02-06 | Outpatient (CLI) | payer OTHER | LOC: ORTHO 11:06 | PROVIDERS: ATTEND Orthopaedic Surgery | DX: Z47.89 Encounter for other orthopedic aftercare (principal) ==